=== PATIENT | female | born 1980 | race Caucasian/White ===

== ENCOUNTER → 2016-12-14 08:32 | Outpatient (CLI) | payer MEDICAID ==
[2009-09-15 08:05] VITALS: BMI 23.2
--- NOTE | 2016-12-19 06:59 | EMG ---
PATIENT:NORMA PITTS DATE OF SERVICE: 12/14/16 MEDICAL RECORD: [id number] DATE OF : [birth year] LOCATION: [facility] ADMISSION DATE: REFERRING PHYSICIAN: CONSTANTIN BARAJAS MD INTERPRETING PHYSICIAN: CHANTELLE NASH MD DATE OF SERVICE: 12/14/2016 Referred as an outpatient by Dr. Barajas. DATE OF : 1980. DATE OF EXAMINATION: 12/14/16. ELECTROMYOGRAPHIC DATA: Electromyographic examination is limited to both upper extremities. In the right upper extremity, right median motor stimulation elicits a compound motor action potential with a distal latency of 3.4 milliseconds, peak amplitude of 10 millivolts, and calculated conduction velocity of 51 meters per second. Right ulnar motor stimulation elicits a compound motor action potential with a distal latency of 2.8 milliseconds, peak amplitude of 10 millivolts, and calculated conduction velocity of 66 meters per second. Right ulnar motor stimulation across the elbow fails to elicit evidence of conduction block at this level. Antidromic right median sensory stimulation elicits a response with a distal latency of 3.5 milliseconds, amplitude of 20 microvolts, and calculated conduction velocity of 50 meters per second. Antidromic right ulnar sensory stimulation elicits a response with a distal latency of 3.2 milliseconds, amplitude of 13 microvolts, and calculated conduction velocity of 59 meters per second. The right median F wave has a latency of 25 milliseconds. In the left upper extremity, left median motor stimulation elicits a compound motor action potential with a distal latency of 3.0 milliseconds, peak amplitude of 11 millivolts, and calculated conduction velocity of 51 meters per second. Left ulnar motor stimulation elicits a compound motor action potential with a distal latency of 2.5 milliseconds, peak amplitude of 10 millivolts, and calculated conduction velocity of 60 meters per second. Left ulnar motor stimulation across the elbow fails to elicit evidence of conduction block at this level. Antidromic left median sensory stimulation elicits a response with a distal latency of 3.1 milliseconds, amplitude of 26 microvolts, and calculated conduction velocity of 55 meters per second. Antidromic left ulnar sensory stimulation elicits a response with a distal latency of 3.1 milliseconds, amplitude of 31 microvolts, and calculated conduction velocity of 58 meters per second. The left median F wave has a latency of 25 milliseconds. Needle electrode examination is limited to both upper extremities as well. Muscles interrogated include the abductor pollicis brevis, first dorsal interosseous, abductor digiti minimi, pronator teres, biceps brachii, triceps and deltoid. There is no abnormality of insertional activity and no abnormal spontaneous activity is seen in all muscles interrogated. Motor unit potential morphology and the pattern of motor unit potential firing and recruitment is normal in all muscles sampled. INTERPRETATION: Electromyographic examination of both upper extremities is normal. There is no electrical evidence of a cervical radiculopathy or other ELECTROMYGRAM/NERVE CONDUCTION [id number] NORMA PITTS lesion of the lower motor neuron in the upper extremities at this time. There is no evidence of active denervation. TRANSINT:[id number] Voice Confirmation ID: [id number] DOCUMENT ID: [id number] CHANTELLE NASH MD at 0659 CC: [id number] DICTATION DATE: 12/15/16 0703 [employer] SALES REPRESENTATIVE: 12/16/16 0051 DEP CLI 12/14/16 [address] [place] [address]
== END | disposition home or self-care (01) ==
LOC: D.CN 08:30
DX: R10.9 Unspecified abdominal pain (principal); M79.602 Pain in left arm; M79.601 Pain in right arm; R53.1 Weakness

== ENCOUNTER → 2018-04-12 17:09 | Outpatient (CLI) | payer MEDICAID ==
[2009-09-15 08:05] VITALS: BMI 23.2
[2018-04-18 09:20] LABS: OVA + PARASITE EXAM Final report (())
[2018-05-09 06:48] VITALS: BMI 20.6
== END | disposition home or self-care (01) ==
LOC: D.LAB 04-11 15:00 → D.LABREF 17:09
PROVIDERS: Internal Medicine Gastroenterology
DX: R19.7 Diarrhea, unspecified (principal)

== ENCOUNTER 2018-05-09 06:05 | Day surgery (SDC) | payer MEDICAID ==
[~2018-05-09] VITALS: Ht 154.9 cm; Wt 49.5 kg
--- NOTE | ~2018-05-09 | OP ---
PATIENT NAME: NORMA PITTS MEDICAL RECORD: [id number] :[birth year] LOCATION:[facility] ADMISSION DATE: SURGEON: OLIVIA MORE MD DATE OF OPERATION: 05/09/2018 PROCEDURE: Push enteroscopy with fecal microbial transplant. INDICATIONS: Ms. Pitts is a delightful 37-year-old woman with a history of recurrent Clostridium difficile colitis. She was treated initially with Flagyl, but failed therapy with recurrent C. diff positive stool. She was then treated with 14 days of vancomycin and post-treatment continued to have loose diarrhea stools positive for C. diff. She presents for outpatient fecal microbial transplant. PREMEDICATIONS: Total IV anesthesia (propofol 100 mg). INSTRUMENT: Olympus video colonoscope, pediatric. PROCEDURE AND FINDINGS: After receiving informed consent, Ms. Pitts's posterior pharynx was anesthetized with Cetacaine spray. She was placed in left lateral decubitus position, sedated as per anesthesia. After achieving an adequate level of sedation, the colonoscope was introduced per orally and advanced into the jejunum without difficulty. At 125 cm, 60 cc of fecal microbial transplant was deployed through the colonoscope and into the jejunum. This was followed with a 60 cc water flush. The colonoscope was then withdrawn. Of note, the duodenum and the proximal jejunal mucosa appeared normal without erythema or ulcers. There was mild antral erythema and a small hiatal hernia was present with mild irregularity at the Z line (biopsies not done). Ms. Pitts tolerated the procedure well. No immediate complications. ASSESSMENT: 1. 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 2. Small hiatal hernia with evidence of mild reflux esophagitis. 3. Mild gastritis. RECOMMENDATIONS: Pepcid 20 mg daily as needed. We will plan follow up in 2 weeks and 1 month to monitor efficacy of transplant. TRANSINT:[id number] Voice Confirmation ID: [id number] DOCUMENT ID: [id number] OLIVIA MORE MD at 1029 CC: CONSTANTIN GUTIERREZ [id number] DICTATION DATE: 05/09/18 0943 [employer] PROCESSING: 05/09/18 [address] [place] [address]
[2018-05-09 06:35] LABS: HEMATOCRIT 35.2 % (36.0-48.0); HEMOGLOBIN 11.9 g/dL (12-16); MCH 33.5 pg (26.0-34.0); MCHC 33.8 g/dL (31.0-37.0); MCV 99.2 fL (80.0-100.0); MEAN PLATELET VOLUME 11.4 fL (7.4-10.4); RBC 3.55 10x6/uL (4.00-5.40); RDW 12.8 % (11.5-14.5); WBC 5.6 10x3/uL (4.8-10.8)
[2018-05-09 06:38] LABS: PLATELET COUNT 260 10x3/uL (130-400)
[2018-05-09 06:48] VITALS: BP 130/92; Ht 154.9 cm; Wt 49.5 kg
[2018-05-09 06:51] LABS: ALBUMIN 3.4 g/dL (3.4-5.0); ALKALINE PHOSPHATASE 38 U/L (46-116); ALT (SGPT) 51 U/L (10-68); BILIRUBIN - TOTAL 0.32 mg/dL (0.2-1.3); CALC OSMOLALITY 281 mosm/kg (275-300); CARBON DIOXIDE 28.4 mmol/L (21.0-32.0); CHLORIDE - SERUM 106 mmol/L (98-107); CREATININE - SERUM 0.6 mg/dL (0.6-1.3); GLUCOSE 88 mg/dL (74-106); POTASSIUM - SERUM 3.4 mmol/L (3.5-5.1); PROTEIN - SERUM 7.1 g/dL (6.4-8.2); SODIUM 142 mmol/L (136-145); UREA NITROGEN 13 mg/dL (7-18); eGFR NON AFRICAN AMERICAN > 90 mL/min (90-120)
[2018-05-09 07:14] LABS: EOSINOPHILS 2 % (0-7); LYMPHOCYTES 65 % (15-50); MONOCYTES 2 % (2-11); NEUTROPHILS 31 % (40-80); PLATELET ESTIMATE NORMAL
== END 2018-05-09 10:32 | disposition home or self-care (01) ==
LOC: D.OPS 06:05
PROVIDERS: Internal Medicine Gastroenterology
DX: A04.71 Enterocolitis due to Clostridium difficile, recurrent (principal); K44.9 Diaphragmatic hernia without obstruction or gangrene; K21.0 Gastro-esophageal reflux disease with esophagitis; K29.70 Gastritis, unspecified, without bleeding; Z01.812 Encounter for preprocedural laboratory examination

== ENCOUNTER → 2018-05-27 13:55 | Outpatient (CLI) | payer MEDICAID ==
[2018-05-09 06:48] VITALS: BMI 20.6
== END | disposition home or self-care (01) ==
LOC: D.LABREF 13:55
DX: R19.7 Diarrhea, unspecified (principal); Z94.89 Other transplanted organ and tissue status

== ENCOUNTER → 2018-07-15 15:54 | Outpatient (CLI) | payer MEDICAID ==
[2018-05-09 06:48] VITALS: BMI 20.6
[2018-07-19 16:15] LABS: OVA + PARASITE EXAM Final report (())
== END | disposition home or self-care (01) ==
LOC: D.LABREF 15:54
PROVIDERS: Internal Medicine Gastroenterology
DX: R19.7 Diarrhea, unspecified (principal); Z98.890 Other specified postprocedural states

== ENCOUNTER 2018-08-16 11:58 | Day surgery (SDC) | payer MEDICAID ==
[2018-05-09 06:48] VITALS: Ht 154.9 cm; Wt 50.0 kg
[~2018-08-16] VITALS: Ht 154.9 cm; Wt 50.0 kg
[2018-08-16 11:55] VITALS: BP 166/92; BMI 20.8
[~2018-08-16 11:58] MED LIST: NORCO 10-325 TA1 TAB PO
[2018-08-16 12:39] LABS: HCG URINE NEGATIVE (NEGATIVE)
[2018-08-16 12:40] LABS: BASOPHILS 0.3 % (0-2); EOSINOPHILS 2.1 % (0-7); HEMATOCRIT 37.4 % (36.0-48.0); HEMOGLOBIN 12.6 g/dL (12-16); IMMATURE GRANULOCYTES 0.2 % (0-5); LYMPHOCYTES 33.7 % (15-50); MCH 33.7 pg (26.0-34.0); MCHC 33.7 g/dL (31.0-37.0); MEAN PLATELET VOLUME 11.4 fL (7.4-10.4); MONOCYTES 9.5 % (2-11); NEUTROPHILS 54.2 % (40-80); PLATELET COUNT 308 10x3/uL (130-400); RBC 3.74 10x6/uL (4.00-5.40); RDW 12.4 % (11.5-14.5); WBC 8.7 10x3/uL (4.8-10.8)
--- NOTE | 2018-08-16 15:13 | NUR ---
BOTTLE 1: [id number] BOTTLE 2: [id number]
--- NOTE | 2018-08-16 15:30 | NUR ---
REC'D FROM GI LAB. FAMILY AT BEDSIDE. [place] REFUGIO SERVED. CONTACT ISOLATION PRECAUTIONS USED.
--- NOTE | 2018-08-16 15:50 | NUR ---
DR MORE SPOKE WITH PATIENT AND FAMILY.
--- NOTE | 2018-08-16 16:05 | NUR ---
WRITTEN AND VERBAL DC INST GIVEN TO PT. VERBALIZED UNDERSTANDING. DC'D HOME WITH FAMILY VIA PRIVATE VEHICLE. TAKEN TO VEHICLE VIA WC. STABLE AT TIME OF DC.
--- NOTE | 2018-10-11 12:20 | OP ---
PATIENT NAME: NORMA PITTS MEDICAL RECORD: [id number] :[birth year] LOCATION:[facility] ADMISSION DATE: SURGEON: OLIVIA MORE MD DATE OF OPERATION: 08/16/2018 PROCEDURE: EGD with fecal microbial transplant. INDICATIONS: Ms. Pitts is a very pleasant 37-year-old woman with a history of recurrent Clostridium difficile infection. After undergoing a colonoscopy in March 2018, the xTAG stool studies were positive for CDT. She was treated with 14 days of Flagyl. Repeat stool sample on 04/12/2018 was again positive for CDT and she was treated with 14 days of vancomycin, but continued to have diarrhea. She had a fecal transplant via the EGD route on 05/09/2018. In May 2018, she continued to have loose stools; however, stool culture and sensitivity was negative and white blood cell positive; but CDT, they were unable to run secondary to solid stool. She presents for repeat fecal microbial transplant. PREMEDICATIONS: Total IV anesthesia (propofol 400 mg). INSTRUMENT: Olympus video colonoscope, pediatric. PROCEDURE AND FINDINGS: After receiving informed consent, Ms. Pitts's posterior pharynx was anesthetized with Cetacaine spray. She was placed in left lateral decubitus position and sedated as per anesthesia. After achieving adequate level of sedation, the colonoscope was advanced per orally and advanced to 110 cm within the jejunum. At 110 cm, a total of 60 cc of fecal microbial transplant was flushed through the colonoscope followed by 120 cc of free water flush. As the scope was withdrawn, it was noted that small bowel mucosa appeared normal as did the mucosa of the stomach. There was a small hiatal hernia noted. Ms. Pitts tolerated the procedure well. No immediate complications. ASSESSMENT: 1. 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 2. Small hiatal hernia. RECOMMENDATIONS: 1. Continue probiotics. 2. Avoid antibiotics for at least 6 months if possible. TRANSINT:[id number] Voice Confirmation ID: [id number] DOCUMENT ID: [id number] OLIVIA MORE MD at 1220 CC: CONSTANTIN GUTIERREZ [id number] DICTATION DATE: 10/10/18 1409 CORE LOADER: 10/10/18 1451 [facility] [place] [place] 08/16/18 [facility] [address] [facility] [address]
== END 2018-08-16 16:05 | disposition home or self-care (01) ==
LOC: D.OPS 11:58
PROVIDERS: Internal Medicine Gastroenterology
DX: A04.71 Enterocolitis due to Clostridium difficile, recurrent (principal)

== ENCOUNTER → 2018-10-17 14:34 | Outpatient (CLI) | payer MEDICAID ==
[2018-10-21 04:06] LABS: OVA + PARASITE EXAM Final report (())
== END | disposition home or self-care (01) ==
LOC: D.LAB 14:34
PROVIDERS: Internal Medicine Gastroenterology
DX: R19.7 Diarrhea, unspecified (principal)

== ENCOUNTER 2020-04-01 21:49 | Emergency (ER) | payer MEDICAID ==
[2020-04-01 21:54] VITALS: BP 122/92; Ht 154.9 cm
[2020-04-01] MEDS ORDERED: ADDERALL 10 MG10 MG (21:54)
[2020-04-01] MEDS ORDERED: CYCLOBENZAPRINE5 MG (21:55)
[2020-04-01] MEDS ORDERED: [UNRECOGNIZED DRUG - OTHER] (21:56)
[2020-04-01] MEDS ORDERED: [UNRECOGNIZED DRUG - OTHER] (21:56)
== END 2020-04-01 22:40 | disposition home or self-care (01) ==
LOC: D.ER 21:49
DX: S61.211A Laceration without foreign body of left index finger without damage to nail, initial encounter (principal); W26.8XXA Contact with other sharp object(s), not elsewhere classified, initial encounter; Y93.9 Activity, unspecified; Y92.9 Unspecified place or not applicable